=== PATIENT | female | born 1940 | race African-American/Black ===

== ENCOUNTER → 2017-05-15 | Outpatient (CLI) | payer MEDICARE | END | disposition home or self-care (01) | LOC: PCVCCLINIC 13:45 | DX: I25.10 Atherosclerotic heart disease of native coronary artery without angina pectoris (principal); I10 Essential (primary) hypertension; E78.5 Hyperlipidemia, unspecified; I65.23 Occlusion and stenosis of bilateral carotid arteries; G47.33 Obstructive sleep apnea (adult) (pediatric); R94.31 Abnormal electrocardiogram [ECG] [EKG]; Z87.891 Personal history of nicotine dependence; Z79.899 Other long term (current) drug therapy | CPT/HCPCS: 80061; 93005; G0463 ==

== ENCOUNTER → 2018-04-30 | Outpatient (CLI) | payer MEDICARE, MEDICAID | END | disposition home or self-care (01) | LOC: PCVCCLINIC 13:16 | PROVIDERS: ATTEND Internal Medicine | DX: I25.10 Atherosclerotic heart disease of native coronary artery without angina pectoris (principal); I10 Essential (primary) hypertension; E78.5 Hyperlipidemia, unspecified; I65.23 Occlusion and stenosis of bilateral carotid arteries; G47.33 Obstructive sleep apnea (adult) (pediatric); E11.9 Type 2 diabetes mellitus without complications; Z87.891 Personal history of nicotine dependence; Z79.82 Long term (current) use of aspirin; Z91.010 Allergy to peanuts; Z79.84 Long term (current) use of oral hypoglycemic drugs; Z91.011 Allergy to milk products; Z88.8 Allergy status to other drugs, medicaments and biological substances | CPT/HCPCS: 36415; 80061; 93005; G0463 ==

== ENCOUNTER → 2018-11-12 | Outpatient (CLI) | payer MEDICARE, MEDICAID ==
[~2018-11-12] MED LIST: REGADENOSON 0.4 MG/5 ML DISP.SYRIN. IV ONE
--- NOTE | 2018-11-12 09:20 | PCVCIMAG ---
APPROVED REPORT Study performed: 11/12/2018 08:25:37 EXAM: Comprehensive 2D, Doppler, and color-flow Echocardiogram Patient Location: Echo lab Status: routine BSA: 1.79 HR: 64 bpmBP: 144/84 mmHg Rhythm: NSR Other Information Study Quality: Adequate Risk Factors: Cardiac Risk Factors: HTN, Hyperlipidemia Indications CAD 2D Dimensions IVSd: 12.12 (7-11mm) LVDd: 45.97 mm PWd: 10.19 (7-11mm) LVDs: 37.44 (25-40mm) Left Atrium: 39.74 (27-40mm) Aortic Root: 32.59 mm LV Single Plane 4CH: 47.31 % LV Single Plane 2CH: 37.56 % Biplane EF: 42.6 % Volumes Left Atrial Volume (Systole) Single Plane 4CH: 67.41 mLSingle Plane 2CH: 91.32 mL LA ESV Index: 46.00 mL/m2 Aortic Valve AoV Peak Justin.: 1.33 m/s AO Peak Gr.: 7.08 mmHgLVOT Max P.07 mmHg LVOT Max V: 0.72 m/s Mitral Valve E/A Ratio: 0.6 MV Decel. Time: 259.78 ms MV E Max Justin.: 0.56 m/s MV A Justin.: 0.88 m/s IVRT: 114.19 ms Pulmonary Valve PV Peak Justin.: 0.73 m/sPV Peak Gr.: 2.14 mmHg Pulmonary Vein P Vein S: 0.24 m/sP Vein A: 0.36 m/s P Vein D: 0.31 m/sP Vein A Dur.: 121.1 msec P Vein S/D Ratio: 0.77 Tricuspid Valve TR Peak Justin.: 2.91 m/s TR Peak Gr.: 33.93 mmHg TV Vmax: 0.49 m/s Left Ventricle The left ventricle is normal size. There is normal left ventricular wall thickness. Left ventricular systolic function is moderately decreased. LVEF is 40-45%. Hypokinesis base of inferior and inferolateral olsen Mild diastolic dysfunction is present (impaired relaxation pattern). Right Ventricle The right ventricle is normal size. The right ventricular systolic function is normal. Atria Left atrium is moderately dilated. The right atrium size is normal. Aortic Valve The aortic valve is normal in structure. No aortic regurgitation is present. There is no aortic valvular stenosis. Mitral Valve The mitral valve is normal in structure. There is no mitral valve regurgitation noted. No evidence of mitral valve stenosis. Tricuspid Valve The tricuspid valve is normal in structure. Mild tricuspid regurgitation with PAP of 40 mmHg. Pulmonic Valve The pulmonary valve is normal in structure. There is no pulmonic valvular regurgitation. Great Vessels The aortic root is normal in size. IVC is normal in size and collapses >50% with inspiration. Pericardium There is no pericardial effusion. There is no pleural effusion. <Conclusion> Left ventricular systolic function is moderately decreased. LVEF is 40-45%. Hypokinesis base of inferior and inferolateral olsen Mild diastolic dysfunction is present (impaired relaxation pattern). Left atrium is moderately dilated. The aortic valve is normal in structure. No aortic regurgitation or stenosis The mitral valve is normal in structure. No mitral valve regurgitation. Mild tricuspid regurgitation with pulmonary artery pressure of 40 mmHg. There is no pericardial effusion.
--- NOTE | 2018-11-12 12:44 | PCVCIMAG ---
APPROVED REPORT Imaging Protocol: Rest Tc-99m/Stress Tc-99m 1 day Study performed: 11/12/2018 08:54:28 Indication: CAD, Chest pain Patient Location: Out-Patient Stress Nurse: Joanne Wang RN, Macey Batista RN NM Tech:Marbin RevelesTINO Ht: 5 ft 3 in Wt: 167 lbs BSA: 1.79 m2 HR: 59 bpm BP: 160/70 mmHg BMI: 29.5 Rhythm: Sinus Bradycardia Medical History Medical History: Age, Hyperlipidemia, CVD, CAD, GA, DM, Former Smoker Medications: ASA, Aricept, HCTZ, Metformin, Bystolic, Zocor Allergies: Josiah inhibitors, Peanuts Previous Cardiac Procedures: PCI Exercise History: Sedentary Physical Disabilities: Gait and balance issues Meds Held (24 hrs): Bystolic Resting Data Rest SPECT myocardial perfusion imaging was performed in supine position 45 minutes following the intravenous injection of 11.1 mCi of Tc-99m Sestamibi. Time of rest injection: 904 Date: 11/12/2018 Administration Route: IV Administration Site: Right Arm Pharmacologic Stress Pharmacologic stress test was performed by injecting Regadenoson 0.4 mg IV push over 10-15 seconds immediately followed by the intravenous injection of 35.2 mCi of Tc-99m Sestamibi. Time of stress injection: 1014 Date: 11/12/2018 Administration Route: IV Administration Site: Right Arm Gated Stress SPECT was performed 45 minutes after stress injection. The images were gated to evaluate regional wall motion and calculate left ventricular ejection fraction. Stress Test Details Stress Test: Pharmacologic stress testing performed using 0.4 mg of regadenoson per 5 mL given IV over 10 seconds. Reason for pharmacologic stress test: physical limitation. HRMax Heart Rate (APMHR): 143 bpm Resting HR: 59 bpmTarget HR (85% APMHR): 121 bpm Max HR Achieved: 86 bpm % of APMHR: 60 Recovery HR: 76 bpm BP Resting BP: 160/70 mmHg Max BP: 174/66 mmHg Recovery BP: 150/71 mmHg ECG Resting ECG: Sinus Bradycardia Stress ECG: Sinus Rhythm ST Change: None Maximum ST Deviation: 0 mm Arrhythmia: PVC Recovery ECG: Sinus Rhythm Recovery ST Change: None Recovery ST Deviation: 0 mm Recovery Arrhythmia: None Clinical Reason for Termination: Completed protocol Stress Symptoms: Dyspnea Symptoms resolved with caffeine. Stress ECG Conclusion ECG: Non-ischemic Clinical: Non-ischemic Study Quality Study: Good Study Data Post stress, the left ventricular ejection was 56%.. SSS: 14 SRS: 11 SDS: 4 TID = 0.97. 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 Post stress, the left ventricular ejection was 56%. No prior study available for comparison. Interpreted by: Andrew Maravilla MD Electronically Approved: 11/12/2018 12:33:02 <Conclusion> ECG: Non-ischemic Clinical: Non-ischemic
== END ==
LOC: PCVCIMAG 08:26
PROVIDERS: ATTEND Internal Medicine
DX: I25.10 Atherosclerotic heart disease of native coronary artery without angina pectoris (principal); I25.5 Ischemic cardiomyopathy; I10 Essential (primary) hypertension; E78.5 Hyperlipidemia, unspecified; I65.23 Occlusion and stenosis of bilateral carotid arteries; G47.33 Obstructive sleep apnea (adult) (pediatric); E11.9 Type 2 diabetes mellitus without complications; Z87.891 Personal history of nicotine dependence
CPT/HCPCS: 78452; 93017; 93306; A9500; J2785